=== PATIENT | female | born 1970 | race African-American/Black ===

== ENCOUNTER 2019-06-05 13:41 | Emergency (ER) | payer BC, OTHER ==
[~2019-06-05] VITALS: Ht 167.6 cm; Wt 98.4 kg
[2019-06-05] MEDS ORDERED: CRESTOR20 MG PO (13:56)
[2019-06-05] MEDS ORDERED: VALSARTAN-HCTZ1 EAC1 PO (13:56)
[2019-06-05] MEDS ORDERED: NEURONTIN 300M300 M2 PO (13:56)
[2019-06-05] MEDS ORDERED: MAXALT10 MG PO (13:57)
[2019-06-05] MEDS ORDERED: OZEMPIC0.25 MG/0. SUBQ (13:57)
[2019-06-05] MEDS ORDERED: TRAMADOL 50 MG50 MG PO (13:57)
[2019-06-05] MEDS ORDERED: INDERAL LA120 M1 PO (13:57)
[2019-06-05] MEDS ORDERED: XANAX 0.5 MG0.5 M1 PO (13:58)
[2019-06-05] MEDS ORDERED: FLEXERIL PO (13:58)
[2019-06-05] MEDS ORDERED: HUMALOG100 UNIT/1 SUBQ (13:58)
[2019-06-05 14:35] LABS: INFLUENZA A ANTIGEN Negative (Negative); INFLUENZA B ANTIGEN Negative (Negative)
[2019-06-05] MEDS ORDERED: PREDNISONE 20 M20 M1 PO (15:01)
[2019-06-05] MEDS ORDERED: ZPAK PO (15:01)
[2019-06-05] MEDS ORDERED: PROMETH-CODEIN 65 ML PO (15:01)
[2019-06-05] MEDS ORDERED: VENTOLIN HFA 1818 GM INH (15:01)
[2019-06-05 15:09] VITALS: BP 142/71
== END 2019-06-05 15:10 | disposition home or self-care (01) ==
LOC: M.ERS 13:41
PROVIDERS: Nurse Practitioner Family
DX: J40 Bronchitis, not specified as acute or chronic (principal); E11.9 Type 2 diabetes mellitus without complications; I10 Essential (primary) hypertension; E78.5 Hyperlipidemia, unspecified; G43.909 Migraine, unspecified, not intractable, without status migrainosus; Z88.6 Allergy status to analgesic agent; Z88.8 Allergy status to other drugs, medicaments and biological substances; Z98.51 Tubal ligation status; Z79.4 Long term (current) use of insulin

== ENCOUNTER 2019-11-22 12:54 | Observation (INO) | payer BC ==
[~2019-11-22] VITALS: Ht 167.6 cm; Wt 116.2 kg
--- NOTE | ~2019-11-22 | CON ---
[address] [address] CONSULTATION Name: PEREZDONNAMAYO Boyce Room: [address] Farhat#: [id number] Admission: 11/22/19 Attend Phys: Maddy Rogel MD Discharge: Date of : 70 Report #: [id number] THIS REPORT FOR: //name// cc: JOLENE YODER MD, LINDSAY N MD ~ THIS REPORT FOR: //name// CC: Maddy YODER DATE OF SERVICE: 11/23/2019 REQUESTING PHYSICIAN: Maddy Rogel MD HISTORY OF PRESENT ILLNESS: This is a 49-year-old female. She has a history of morbid obesity, body mass index is 41. The patient also does have a history of diabetes and hypertension. The patient is now admitted here with an episode of unresponsiveness. The patient subsequently reported right-sided weakness as well as paresthesias, which are persisting. She has considerable sleep complaints, which is the reason for this consult. The patient usually is a stomach sleeper. She has had witnessed apneas while asleep. She also has loud, disruptive snoring and significantly disturbed sleep at night. She has marked sleepiness during the day and on multiple occasions, she does doze off unintentionally during the day. In the evening, she does need to move her legs to keep them comfortable. The patient has mild shortness of breath on exertion. Other than this, she does not have any other respiratory complaints including there is no cough, there is no sputum production. There is no chest pain. There are no upper respiratory complaints. There is no swelling of lower extremities. There is no calf pain. She has not been having significant heartburn. The patient does have some joint pains, which are at baseline. She does say that she has muscle weakness. The patient has had some numbness and tingling as well. REVIEW OF SYSTEMS: For 14 points is negative except as mentioned above. PAST MEDICAL HISTORY: Diabetes, hypertension, hyperlipidemia, anxiety, migraine, bowel obstruction in 2018, tubal ligation, right knee scope, uterus ablation, right fallopian tube removal. SOCIAL HISTORY: Lifetime nonsmoker. No known history of heavy alcohol use or illegal drug use. FAMILY HISTORY: There [place] [address] CONSULTATION Name: SHANELL PEREZCarmela Boyce [address]: [address]#: [id number] Admission: 11/22/19 Attend Phys: Maddy Rogel MD Discharge: Date of : 70 Report #: [id number] ALLERGIES: THE PATIENT REPORTS AN ALLERGY OR ADVERSE REACTION TO NSAIDS AND TO LISINOPRIL. PHYSICAL EXAMINATION: GENERAL: She is alert, awake and oriented, does not appear to be in any distress at this time. VITAL SIGNS: She is on room air, is oxygenating 97%. She is tachycardic, heart rate is 112, regular with a blood pressure of 149/90, respiratory rate is 18. She is not in any respiratory distress. She is afebrile with a temperature of 36.8. Body mass index is elevated to 41. HEENT: Head is normocephalic and atraumatic. Pupils are equal and reactive. There is no throat erythema. Airway is Mallampati 4. NECK: Does not show raised JVP, asymmetry, mass, or lymph nodes. CHEST: Symmetrical expansion on inspection and palpation. On auscultation, chest is clear. HEART: Regular. There is no murmur. ABDOMEN: Soft and nontender. EXTREMITIES: Lower extremities show minimal edema. There is no calf tenderness. SKIN: Dry and intact. NEUROLOGICAL: Moves all extremities bilaterally equally and spontaneously, but the patient does complain of weakness in the right upper extremity. IMAGING: The patient's chest x-ray performed yesterday is unremarkable. LABORATORY DATA: The patient's lab work including CBC as well as chemistries [facility]. These are reviewed. The patient does have rhabdomyolysis. Creatinine is 1.2. There are coagulation studies pending at this time. The patient did have an echocardiogram performed, which shows a left ventricular ejection fraction of 65%, pulmonary artery systolic is 39. ASSESSMENT/PLAN: 1. Excessive daytime sleepiness with disturbed sleep and witnessed apneas while asleep. The patient's history is highly consistent with obstructive sleep apnea. Recommend proceeding to a sleep study. I have faxed to write an order for a sleep study through the sleep lab. I also gave the patient my office information. In case for any reason the patient is discharged from the hospital without getting the sleep study scheduled, then she can call my office Tuesday morning and I will assist her in getting the sleep study scheduled. Weight loss is also strongly recommended. 2. Episode of unresponsiveness with right-sided weakness and rhabdomyolysis. I would defer management to the primary service. I agree with fluid resuscitation as is currently ordered. The Neurology service is also on the case. The patient does have sinus tachycardia. This is not fully explained. Overall, my suspicion of thromboembolism is low and I will go ahead and obtain a D-dimer. In case it is elevated, I will consider obtaining venous Dopplers. [address] [place] [address] CONSULTATION Name: CASEY PEREZ Room: [address] Jose Manuel Dougherty#: [id number] Admission: 11/22/19 Attend Phys: Maddy Rogel MD Discharge: Date of : 70 Report #: [id number] Thanks for this consultation. By: [id number] Damon MD /kimberly
[~2019-11-22 12:54] MED LIST: CRESTOR20 MG PO; FLEXERIL PO; HUMALOG100 UNIT/1 SUBQ; INDERAL LA120 M1 PO; MAXALT10 MG PO; NEURONTIN 300M300 M2 PO; OZEMPIC0.25 MG/0. SUBQ; PREDNISONE 20 M20 M1 PO; PROMETH-CODEIN 65 ML PO; TRAMADOL 50 MG50 MG PO; VALSARTAN-HCTZ1 EAC1 PO; VENTOLIN HFA 1818 GM INH; XANAX 0.5 MG0.5 M1 PO; ZPAK PO
[2019-11-22 13:12] VITALS: BP 149/100
[2019-11-22] MEDS ORDERED: KLOR-CON M2020 MEQ PO (13:19)
[2019-11-22 13:55] LABS: HEMATOCRIT 39.3 % (37.0-47.0); HEMOGLOBIN 12.7 gm/dL (12.0-15.0); MCH 26.6 pg (26.0-34.0); MCHC 32.3 g/dL (28.0-37.0); MCV 82.4 fL (80.0-100.0); MPV 10.4 fl. (7.2-11.1); NUCLEATED RBCS 0 /100WBC; PLATELET COUNT* 202 thou/uL (150-400); RBC 4.77 mil/uL (4.20-5.00); WBC 7.9 thou/uL (4.0-11.0)
[2019-11-22 14:03] LABS: CALCIUM 8.9 mg/dL (8.5-10.1); CREATININE 1.2 mg/dL (0.6-1.3); POTASSIUM 3.5 mmol/L (3.5-5.1)
[2019-11-22 14:07] LABS: ABSOLUTE LYMPHOCYTES 2.5 thou/uL (0.8-5.3); ABSOLUTE MONOCYTES 0.7 thou/uL (0.0-1.2); ABSOLUTE NEUTROPHILS 4.4 thou/uL (1.6-8.1); MONOCYTES 8.8 %; POLYS 56.2 %
[2019-11-22 14:08] LABS: ABSOLUTE BASOPHILS 0.1 thou/uL (0.0-0.2); ABSOLUTE EOSINOPHILS 0.1 thou/uL (0.0-0.7); BASOPHILS 1.2 %; EOSINOPHILS 1.8 %
[2019-11-22 14:17] LABS: ALBUMIN 3.5 g/dL (3.4-5.0); TOTAL BILIRUBIN 0.7 mg/dL (<0.1-1.0); TOTAL PROTEIN 8.2 g/dL (6.4-8.2)
[2019-11-22 14:22] LABS: APTT 24.7 Seconds (25.0-31.3); PROTIME 10.7 Seconds (9.20-11.50)
[2019-11-22 18:35] VITALS: BP 135/78
[2019-11-22 18:55] VITALS: BP 144/82
[2019-11-22 20:00] VITALS: BP 162/80
[2019-11-23] VITALS: BP 138/76
[2019-11-23 04:00] VITALS: BP 150/96
--- NOTE | 2019-11-23 05:04 | NUR ---
Oriented x 4 but somewhat drowsy. She had a C-collar placed last evening per order and was sent for CT scan of her spine. Dr Rogel did get the report and wrote order that she didn't have to wear the C-collar. She has been in bed all of this shift. She voided per bedpan and it was a large amount. She has some rt sided weakness. And it does appear like her rt hand was slightly edemedous. She has orders for MRI and MRA, she did complete the questionare. She has had nothing by mouth since midnight. She has slept well.
[2019-11-23 05:39] LABS: CHOLESTEROL 99 mg/dL (<200); HDL CHOLESTEROL 40 mg/dL (>40); LDL CHOLESTEROL 37 mg/dL (<100); TC:HDL 2.5 Ratio (Not establshd); TRIGLYCERIDE 114 mg/dL (<150); VLDL 23 mg/dL (<40)
[2019-11-23 05:47] LABS: SERUM ASSESSMENT CLEAR
--- NOTE | 2019-11-23 07:20 | NUR ---
CHANGE OF SHIFT, BEDSIDE REPORT GIVEN PATIENT SEEN AT BEDSIDE, IN BED ASLEEP ASSUMED PATIENT CARE
[2019-11-23 08:00] VITALS: BP 131/73
--- NOTE | 2019-11-23 10:27 | EKG ---
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
[2019-11-23 11:30] VITALS: BP 149/90
--- NOTE | 2019-11-23 13:17 | 2DMMODE ---
[place] [address] 2 D/M-MODE ECHOCARDIOGRAM Name: PEREZCASEY Room: [address] Farhat#: [id number] Admission: 11/22/19 Attend Phys: Maddy Rogel, Discharge: Date of : 70 Date of Service: 11/23/19 1317 Report #: [id number] THIS REPORT FOR: cc: JOLENE YODER MD, LINDSAY N MD Holkins,Armando Macias MD [facility] ~ ADDENDUM APPROVED REPORT Study performed: 11/23/2019 11:16:49 EXAM: Comprehensive 2D, Doppler, and color-flow Echocardiogram Patient Location: In-Patient Room #: [facility] Status: routine BSA: 2.21 HR: 98 bpm BP: 131/73 mmHg Rhythm: NSR Other Information Study Quality: Good Indications CVA/TIA Echo Enhancing Agent Indication: Rule out Shunt Agent(s) / Amount(s) Used: Agitated Saline 10 cc 2D Dimensions IVSd: 16.14 (7-11mm) LVOT Diam: 21.72 (18-24mm) LVDd: 39.12 mm PWd: 10.98 (7-11mm) Ascending Ao: 28.76 (22-36mm) LVDs: 22.30 (25-40mm) Aortic Root: 32.01 mm Volumes Left Atrial Volume (Systole) LA ESV Index: 21.40 mL/m2 Aortic Valve AoV Peak Dani.: 1.81 m/s AO Peak Gr.: 13.09 mmHg LVOT Max P.68 mmHg AO Mean Gr.: 6.40 mmHg LVOT Mean P[place]58 [place] [address] 2 D/M-MODE ECHOCARDIOGRAM Name: CASEY PEREZ Room: [address] M.R.#: [id number] Admission: 11/22/19 Attend Phys: Maddy Rogel, Discharge: Date of : 70 Date of Service: 11/23/19 1317 Report #: [id number] LVOT Max V: 1.47 m/s AO V2 VTI: 25.56 cm LVOT Mean V: 0.85 m/s CAMILA (VTI): 3.41 cm2 LVOT V1 VTI: 23.56 cm Mitral Valve E/A Ratio: 0.83 MV Decel. Time: 188.08 ms MV E Max Dani.: 0.74 m/s MV PHT: 54.54 ms MVA (PHT): 4.03 cm2 TDI E/Lateral E': 7.40 E/Medial E': 6.73 Medial E' Dani.: 0.11 m/s Lateral E' Dani.: 0.10 m/s Pulmonary Valve PV Peak Dani.: 1.27 m/s PV Peak Gr.: 6.46 mmHg Tricuspid Valve RAP Estimate: 5.00 mmHg TR Peak Gr.: 34.04 mmHg RVSP: 39.00 mmHg PA Pressure: 39.00 mmHg Left Ventricle The left ventricle is normal size. There is normal LV segmental wall motion. Mild concentric left ventricular hypertrophy. Left ventricular systolic function is normal. The left ventricular ejection fraction is within the normal range. LVEF is 65%. Grade I - abnormal relaxation pattern. Right Ventricle The right ventricle is normal size. The right ventricular systolic function is normal. Atria The left atrium size is normal. The interatrial septum is intact with no evidence for an atrial septal defect. The right atrium size is normal. Aortic Valve The aortic valve is normal in structure. No aortic regurgitation is present. There is no aortic valvular stenosis. Mitral Valve The mitral valve is normal in structure. [place] [address] 2 D/M-MODE ECHOCARDIOGRAM Name: PEREZCASEY Room: [address] M.R.#: [id number] Admission: 11/22/19 Attend Phys: Maddy Rogel, Discharge: Date of : 70 Date of Service: 11/23/19 1317 Report #: [id number] No evidence of mitral valve stenosis. Tricuspid Valve The tricuspid valve is normal in structure. Trace tricuspid regurgitation. Mild pulmonary hypertension. Pulmonic Valve The pulmonary valve is normal in structure. There is no pulmonic valvular regurgitation. Great Vessels The aortic root is normal in size. IVC is normal in size and collapses >50% with inspiration. Pericardium There is no pericardial effusion. <Conclusion> The left ventricle is normal size. Mild concentric left ventricular hypertrophy. Left ventricular systolic function is normal. The left ventricular ejection fraction is within the normal range. LVEF is 65%. Grade I - abnormal relaxation pattern. The right ventricle is normal size. The left atrium size is normal. The aortic valve is normal in structure. The mitral valve is normal in structure. The tricuspid valve is normal in structure. IVC is normal in size and collapses >50% with inspiration. There is no pericardial effusion. There is normal LV segmental wall motion. The interatrial septum is intact with no evidence for an atrial septal defect. <ELECTRONICALLY SIGNED> By: Armando Kaur MD, [facility] 11/23/197 16 16 Armando Kaur MD, FACC /INF
--- NOTE | 2019-11-23 15:13 | NUR ---
CM SPOKE TO THE PT TO DISCUSS HER HOME SITUATION, DISCHARGE PLANNING, AND TO INFORM OF THE ROLE OF CM. PT A&O, INDEPENDENT WITH ADL'S, AND WORKS. PT REQUEST INFO FOR DISABILLITY. CM PROVIDED PRINTED INFO PACKET AND INFO FOR APPLYING FOR DISABILITY BENEFITS ONLINE. CM WILL REMAIN AVAILABLE TO ASSIST AND FOLLOW NEEDED.
[2019-11-23 16:00] VITALS: BP 145/86
[2019-11-23 17:14] LABS: CALCIUM 8.3 mg/dL (8.5-10.1); CREATININE 0.9 mg/dL (0.6-1.3); MAGNESIUM 1.8 mg/dL (1.8-2.4)
[2019-11-23 17:17] LABS: POTASSIUM 2.9 mmol/L (3.5-5.1)
[2019-11-23 20:00] VITALS: BP 124/76
[2019-11-24] VITALS: BP 124/70
[2019-11-24 04:00] VITALS: BP 114/68
[2019-11-24 05:07] LABS: GLYCOHEMOGLOBIN (HGB A1C) 12.8 % (4.8-5.6)
[2019-11-24 05:19] LABS: HEMATOCRIT 36.2 % (37.0-47.0); HEMOGLOBIN 11.5 gm/dL (12.0-15.0); MCH 26.2 pg (26.0-34.0); MCHC 31.9 g/dL (28.0-37.0); MCV 82.3 fL (80.0-100.0); MPV 10.3 fl. (7.2-11.1); RBC 4.4 mil/uL (4.20-5.00); RDW-CV 16.5 % (10.5-14.5)
[2019-11-24 05:38] LABS: CALCIUM 8.3 mg/dL (8.5-10.1); CREATININE 1.1 mg/dL (0.6-1.3)
[2019-11-24 08:00] VITALS: BP 122/76
[2019-11-24 12:30] VITALS: BP 131/81
[2019-11-24 14:38] VITALS: BP 131/81
[2019-11-24 14:45] VITALS: BP 131/81
== END 2019-11-24 15:20 | disposition home or self-care (01) ==
LOC: M.ERS 12:54 → M.TBA-ER 14:49 → M.2W 14:49 → M.TBA-ER 14:49 → M.2W 18:57
PROVIDERS: Family Medicine; Internal Medicine Critical Care Medicine; ADMIT Internal Medicine; ATTEND Internal Medicine
DX: R53.1 Weakness (principal); R20.2 Paresthesia of skin; M62.82 Rhabdomyolysis; R00.0 Tachycardia, unspecified; E11.9 Type 2 diabetes mellitus without complications; R65.10 Systemic inflammatory response syndrome (SIRS) of non-infectious origin without acute organ dysfunction; I10 Essential (primary) hypertension; E78.5 Hyperlipidemia, unspecified; F41.9 Anxiety disorder, unspecified; G43.909 Migraine, unspecified, not intractable, without status migrainosus; R74.8 Abnormal levels of other serum enzymes; Z86.73 Personal history of transient ischemic attack (TIA), and cerebral infarction without residual deficits; Z74.09 Other reduced mobility; Z79.4 Long term (current) use of insulin; Z79.899 Other long term (current) drug therapy; Z79.82 Long term (current) use of aspirin; Z20.828 Contact with and (suspected) exposure to other viral communicable diseases

== ENCOUNTER → 2020-01-01 | Outpatient (CLI) | payer BC ==
[~2020-01-01] MED LIST changes: +KLOR-CON M2020 MEQ PO
--- NOTE | 2020-01-14 21:01 | SLEEP ---
[address] [address] SLEEP STUDY REPORT Name: CASEY PEREZ Room: [facility]#: [id number] Admission: 01/01/20 Attend Phys: JOLENE YODER, Discharge: Date of : 70 Report #: [id number] THIS REPORT FOR: //name// CC: JOLENE YODER This study has been reviewed in its entirety by a board certified sleep specialist DATE OF SERVICE: 01/01/2020 SLEEP STUDY INDICATION FOR SLEEP STUDY: Daytime sleepiness with a possible recent history of stroke. INTERPRETATION: Total duration of the study is 462 minutes out of which she was asleep for 419 minutes with an overall sleep efficiency of 91%. Sleep onset was rapid occurring within 7 minutes after lying down in bed. N1 sleep duration was 5%, N2 duration was 67%, N3 duration was 9% and REM duration was 19%. This is a split night sleep study. During the diagnostic portion of the sleep study, the patient was observed for 193 minutes out of which she was asleep for 182 minutes. This included 40 minutes in REM sleep, the rest being non-REM sleep. During this time duration, we recorded multiple sleep related respiratory events. These included 18 hypopneas in addition to 5 respiratory effort related arousals with an overall apnea-hypopnea index of 5.9. Body position data indicates the patient was lying supine throughout the diagnostic portion of the sleep study. Mean heart rate was 89. Periodic limb movement index was normal at 6.6 and arousal index was mildly elevated to 10.2. There were occasional desaturations recorded as well; however, O2 saturation was mostly maintained at or above 88%, dropping below 88% for only 30 seconds during the diagnostic portion of the sleep study. The patient was subsequently placed on a CPAP and was observed on a CPAP with 268 minutes, this included 237 minutes of sleep time, which in turn included 67 minutes of REM sleep. The patient's mean heart rate was now 86. Periodic limb movement index was 13.4 and arousal index mildly elevated to 13.7, review of the CPAP titration indicates the patient was titrated beginning with a CPAP pressure of 5 cm of water, gradually increasing it to 8 cm of water. With the administration of a CPAP of 8 cm of water, there was adequate control of the patient's sleep disordered respirations achieved. Supine REM sleep; however, was not observed on the final CPAP pressure. IMPRESSION: Obstructive sleep apnea with an apnea-hypopnea index of 5.9, adequately controlled with the administration of a CPAP of 8 [place] [address] SLEEP STUDY REPORT Name: CASEY PEREZ Room: [facility]#: [id number] Admission: 01/01/20 Attend Phys: JOLENE YODER, Discharge: Date of : 70 Report #: [id number] RECOMMENDATIONS: Recommend a CPAP of 8 cm of water with heated humidity and mask per patient preference while asleep. During the sleep study, a ResMed AirFit F20 FFM mask, size medium with C-Flex of 3 was used. Recommend avoiding driving or other activities requiring vigilance if drowsy. Consider weight loss, if clinically appropriate. This entire sleep study was reviewed by board certified sleep physician. <ELECTRONICALLY SIGNED> By: Rubio Damon MD 01/14/20 2101 0834 [id number] Damon MD /nt
== END ==
LOC: M.SLEEPLAB 12-12 21:00
PROVIDERS: ATTEND Internal Medicine
DX: G47.33 Obstructive sleep apnea (adult) (pediatric) (principal); G47.34 Idiopathic sleep related nonobstructive alveolar hypoventilation